=== PATIENT | female | born 1955 | race Caucasian/White ===

== ENCOUNTER → 2017-03-28 | Outpatient (CLI) | payer BC | LOC: MRI 03-27 13:00 | DX: I65.29 Occlusion and stenosis of unspecified carotid artery (principal) | CPT/HCPCS: A9577 ==

== ENCOUNTER → 2022-01-01 | Outpatient (CLI) | payer BC ==
[~2022-01-01] MED LIST: ASPIR 8181 MG PO; LOPRESSOR 25 MG25 MG PO; PLETAL 100 MG100 MG PO; PRAVACHOL20 MG PO
== END ==
LOC: KOH-I 13:27
DX: I65.23 Occlusion and stenosis of bilateral carotid arteries (principal)
CPT/HCPCS: 93880